=== PATIENT | male | born 1990 | race Caucasian/White ===

== ENCOUNTER 2024-06-30 19:08 | Emergency (ER) | payer OTHER ==
[~2024-06-30] VITALS: Ht 198.1 cm; Wt 127.0 kg
[~2024-06-30 19:08] MED LIST: AMOCLA875 PO; Acetaminophen650 M1 PO; Amoxicillin500 MG PO; DECADRON6 M1 PO; VISBIOME 112.51 EACH PO
[2024-06-30 19:43] VITALS: BP 155/101
== END 2024-06-30 22:13 | disposition home or self-care (01) ==
LOC: ER 19:08
DX: S82.54XA Nondisplaced fracture of medial malleolus of right tibia, initial encounter for closed fracture (principal); X50.0XXA Overexertion from strenuous movement or load, initial encounter; Z79.1 Long term (current) use of non-steroidal anti-inflammatories (NSAID); Z79.2 Long term (current) use of antibiotics; Z79.52 Long term (current) use of systemic steroids
CPT/HCPCS: 73610; 73630